=== PATIENT | female | born 1940 | race Caucasian/White ===

== ENCOUNTER 2016-06-28 15:55 | Emergency (ER) | payer MEDICARE, OTHER ==
[2016-06-28] MEDS ORDERED: Pantoprazole 40 MG VIAL ONE (16:08)
[2016-06-28 16:21] LABS: #Basophils 0.1 thou/uL (0.0-0.2); #Eosinphils 0.1 thou/uL (0.0-0.7); #Lymphocytes 0.8 thou/uL (1.20-3.40); #Monocytes 0.7 thou/uL (0.11-0.59); #Neutrophils 8.3 thou/uL (1.40-6.50); %Basophils 0.8 % (0.0-1.0); %Eosinophils 0.7 % (0.0-10.0); %Lymphocytes 8.1 % (21.0-51.0); %Monocytes 6.7 % (0.0-10.0); %Neutrophils 83.7 % (42.0-75.0); Hemoglobin 14.3 g/dL (12.0-16.0); Mean Corpuscular HGB CONC 32.7 g/dL (32.0-36.0); Mean Corpuscular Hemoglobin 31.5 pg (27.0-31.0); Mean Corpuscular Volume 96.2 fl (81.0-99.0); Mean Platelet Volume 9.9 fL (7.4-10.4); Platelet Count 184 thou/uL (130-400); RBC Distribution Width 12.3 % (11.5-14.5); Red Blood Cell (RBC) Count 4.53 mill/uL (4.20-5.40); White Blood Cell (WBC) Count 9.9 thou/uL (4.8-10.8)
[2016-06-28 16:38] LABS: ALT (SGPT) 11 U/L (0-55); AST (SGOT) 21 U/L (5-34); Albumin 4.1 g/dL (3.4-4.8); Alkaline Phosphatase 75 U/L (40-150); Anion Gap 14 mmol/L (10-20); BUN (Urea Nitrogen) 13 mg/dL (9.8-20.1); Bilirubin, Total 0.6 mg/dL (0.2-1.2); Calc. Creatinine Clearance 0 mL/min (70-130); Calcium 9.4 mg/dL (7.8-10.44); Carbon Dioxide 31 mmol/L (23-31); Chloride 101 mmol/L (98-107); Estimated GFR-MDRD 67; Globulin 2.6 g/dL (2.4-3.5); Glucose 140 mg/dL (83-110); Potassium 3.2 mmol/L (3.5-5.1); Protein, Total 6.7 g/dL (5.8-8.1); Sodium 143 mmol/L (136-145)
[2016-06-28] MEDS ORDERED: Prochlorperazine 10 MG/2 ML VIAL ONE ×2 (16:43→16:50)
[2016-06-28] MEDS ORDERED: Ondansetron HCl/PF 4 MG/2 ML Vial ONE (18:43)
[2016-06-28 18:45] LABS: Bilirubin Negative (Negative); Blood, Urine Negative (Negative); Glucose, Urine (Dipstick) Negative (Negative); Leukocyte Small (Negative); Nitrite Negative (Negative); Protein, Urine (Dipstick) 30 mg/dL (Neg-Trace); Urobilinogen 0.2 mg/dL (0.2-1.0); pH, Urine 7.5 (5.0-9.0)
[2016-06-28 18:48] LABS: Clarity Cloudy (Clear); RBC/HPF 0-3 HPF (0-3); Squamous Epithelial 0-3 HPF (0-3); WBC/HPF 0-3 HPF (0-3)
[2016-06-28 18:49] LABS: Bacteria/HPF Rare-Few HPF (None Seen); Crystals/HPF 2+ AMORPH PHOS HPF (Negative)
[2016-06-28] MEDS ORDERED: HYDROcodone/Acetaminophen 5/325 mg Tablet ONE (19:48)
[2016-06-28] MEDS ORDERED: Famotidine 20 MG TAB ONE (19:48)
--- NOTE | 2016-06-28 20:35 | CT ---
CT ABDOMEN AND PELVIS WITHOUT CONTRAST 06/28/[address] of the abdomen and pelvis was performed for evaluation of upper abdominal pain with nausea and vomiting. Axial slices were acquired, then coronal reconstructions were done. There are no prio r scans available for comparison. There is a very large hiatal hernia with most of the fundus of the stomach being in the chest. There is fluid retention in the stomach which may be due to a relative gastric outlet obstruction, whethe r it be mechanical or gastroparesis. The stomach wall does not appear thick in any way. The liver co ntains multiple cystic areas throughout both lobes, the largest measuring about 2.4 cm in the dome o f the liver. These are probably just simple cysts, but ultrasound should be done electively to be vasquez re. The spleen, pancreas, and adrenal glands were unremarkable within the limitations of a noncontra st study. The kidneys showed a subcentimeter hemorrhagic cyst in the right kidney. No solid masses o r hydronephrosis was seen. The abdominal aorta is calcified but there is no aneurysm of significance . The bowel is nondistended. There are no inflammatory changes around bowel. No free air or free fluid was seen. A few diverticula are seen in the sigmoid region. CT of the pelvis shows no pelvic masses, fluid collections, or inflammatory changes. Degenerative ch anges are prominent in the lower lumbar spine. IMPRESSION: 1. Very large hiatal hernia with most of the fundus of the stomach in the chest. 2. Fluid retention in the stomach. See above. 3. Cannot rule out sludge in the gallbladder. An elective ultrasound would be useful. 4. Several cystic areas in the liver, probably just simple cysts, but an elective ultrasound is needed for confirmation. POS: [facility]
== END 2016-06-28 20:05 | disposition home or self-care (01) ==
LOC: BURERS 15:55
DX: K21.0 Gastro-esophageal reflux disease with esophagitis (principal); K44.9 Diaphragmatic hernia without obstruction or gangrene; M81.0 Age-related osteoporosis without current pathological fracture; G62.9 Polyneuropathy, unspecified; E03.9 Hypothyroidism, unspecified; E78.5 Hyperlipidemia, unspecified; F32.9 Major depressive disorder, single episode, unspecified; Z79.52 Long term (current) use of systemic steroids; Z79.899 Other long term (current) drug therapy
CPT/HCPCS: 36415; 74176; 80053; 81003; 81015; 82274; 83690; 85025; 96361; 96374; 96375; C9113; J0780; J2405

== ENCOUNTER 2019-04-10 13:54 | Emergency (ER) | payer MEDICARE ==
[2019-04-10] MEDS ORDERED: Nitroglycerin 0.4 MG TAB 1 EACH ONE (14:19)
[2019-04-10 14:56] LABS: ALT (SGPT) 32 U/L (8-55); AST (SGOT) 34 U/L (5-34); Albumin 4.1 g/dL (3.4-4.8); Alkaline Phosphatase 152 U/L (40-110); Anion Gap 17 mmol/L (10-20); BUN (Urea Nitrogen) 14 mg/dL (9.8-20.1); Bilirubin, Total 0.4 mg/dL (0.2-1.2); Calc. Creatinine Clearance 0 mL/min (70-130); Calcium 9.3 mg/dL (7.8-10.44); Carbon Dioxide 21 mmol/L (23-31); Chloride 101 mmol/L (98-107); Estimated GFR-MDRD 65; Globulin 3.3 g/dL (2.4-3.5); Glucose 108 mg/dL (83-110); Lipase 24 U/L (8-78); Potassium 4.1 mmol/L (3.5-5.1); Protein, Total 7.4 g/dL (6.0-8.3); Sodium 135 mmol/L (136-145)
[2019-04-10] MEDS ORDERED: Clopidogrel Bisulfate 75 MG TAB ONE (14:57)
[2019-04-10 14:59] LABS: Eosinophils 5 % (0-10); Hemoglobin 13.3 g/dL (12.0-16.0); Lymphocytes 5 % (21-51); MDiff Complete? YES; Mean Corpuscular HGB CONC 32.1 g/dL (32.0-36.0); Mean Corpuscular Hemoglobin 31.9 pg (27.0-31.0); Mean Corpuscular Volume 99.5 fL (78.0-98.0); Mean Platelet Volume 10.1 fL (7.4-10.4); Monocytes 6 % (0-10); Neutrophil 84 % (42-75); Platelet Count 196 thou/uL (130-400); RBC Distribution Width 12.1 % (11.5-14.5); Red Blood Cell (RBC) Count 4.18 mill/uL (4.20-5.40)
[2019-04-10] MEDS ORDERED: Clopidogrel Bisulfate 75 MG TAB PO SCH (15:00)
--- NOTE | 2019-04-10 15:10 | RAD ---
PORTABLE CHEST: HISTORY: Left-sided chest pain. COMPARISON: 07/05/2018 study. FINDINGS: The patient is rotated to the left on this exam. Heart size is felt to be within normal limits. Chr onic-appearing lung changes are seen without focal infiltrates. IMPRESSION: Chronic lung change. POS: [facility]
--- NOTE | 2019-04-10 15:40 | RAD ---
PA AND LATERAL CHEST: HISTORY: Left-sided chest pain. FINDINGS: Heart size is within normal limits. A hiatal hernia is demonstrated. Chronic-appearing lung changes are seen. IMPRESSION: No active intrathoracic disease. POS: [facility]
[2019-04-10 15:42] LABS: Bilirubin Small (Negative); Blood, Urine Negative (Negative); Clarity Cloudy (Clear); Glucose, Urine (Dipstick) Negative (Negative); Leukocyte Moderate (Negative); Nitrite Negative (Negative); Protein, Urine (Dipstick) 30 mg/dL (Neg-Trace); Urobilinogen 0.2 mg/dL (Less than 2)
[2019-04-10] MEDS ORDERED: Ondansetron ODT 4 MG TAB ONE (15:46)
[2019-04-10] MEDS ORDERED: Ondansetron PF 4 MG/2 ML Vial ONE (15:48)
[2019-04-10 15:52] LABS: Bacteria/HPF 1+ HPF (None Seen); Broad Cast None Seen LPF (None Seen); Cellular Cast None Seen LPF (None Seen); Epithelial Cast None Seen LPF (None Seen); Fatty Cast None Seen LPF (None Seen); Mucous/LPF 4+ LPF (<2+); Oval Fat Bodies/HPF None Seen HPF (None Seen); RBC/HPF None Seen HPF (0-3); Red Blood Cell Cast None Seen LPF (None Seen); Renal Epithelial None Seen HPF (None Seen); Sperm/HPF None Seen HPF (None Seen); Squamous Epithelial None Seen HPF (0-3); Transitional Epithelial None Seen HPF (None Seen); Trichomonas/HPF None Seen HPF (None Seen); White Blood Cell Cast None Seen LPF (None Seen); Yeast-Budding None Seen HPF (None Seen); Yeast-Hyphae None Seen HPF (None Seen)
[2019-04-10 15:53] LABS: Calcium Oxalate Crystals None Seen HPF (None Seen); Other Casts None Seen LPF (None Seen); Triple Phosphate Crystal None Seen HPF (None Seen); Unclassified Crystals None Seen HPF (None Seen); Waxy Cast None Seen LPF (None Seen)
[2019-04-10] MEDS ORDERED: Nitrofurantoin Monohyd/M-Cryst 100 MG CAP ONE (16:23)
== END 2019-04-10 16:36 | disposition short-term general hospital (02) ==
LOC: BURERS 13:54
DX: R07.89 Other chest pain (principal); S81.819A Laceration without foreign body, unspecified lower leg, initial encounter; R00.1 Bradycardia, unspecified; N39.0 Urinary tract infection, site not specified; E03.9 Hypothyroidism, unspecified; E78.1 Pure hyperglyceridemia; E78.5 Hyperlipidemia, unspecified; I10 Essential (primary) hypertension; G62.9 Polyneuropathy, unspecified; Z79.899 Other long term (current) drug therapy; Z79.51 Long term (current) use of inhaled steroids; X58.XXXA Exposure to other specified factors, initial encounter
CPT/HCPCS: 71045; 71046; 80053; 81003; 81015; 83605; 83690; 84484; 85025; 85379; 87086; 93005; 94760; 96374; J2405; Q0162

== ENCOUNTER 2020-04-04 09:20 | Emergency (ER) | payer MEDICARE ==
[2020-04-04] MEDS ORDERED: Oxymetazoline HCl 0.05% (30 ML BOT) ONE (09:35)
[2020-04-04] MEDS ORDERED: Cephalexin 250 MG CAP ONE (11:08)
== END 2020-04-04 11:30 | disposition home or self-care (01) ==
LOC: BURERS 09:20
DX: R04.0 Epistaxis (principal); E03.9 Hypothyroidism, unspecified; E78.2 Mixed hyperlipidemia; I10 Essential (primary) hypertension; Z79.899 Other long term (current) drug therapy
CPT/HCPCS: 30903

== ENCOUNTER 2020-07-26 11:34 | Outpatient (CLI) | payer MEDICARE | END 2020-07-26 11:35 | disposition home or self-care (01) | LOC: BURRAD 11:34 | PROVIDERS: ATTEND Family Medicine | DX: M54.5 Low back pain (principal); M47.816 Spondylosis without myelopathy or radiculopathy, lumbar region; M81.0 Age-related osteoporosis without current pathological fracture | CPT/HCPCS: 72100; 72170 ==

== ENCOUNTER 2022-07-03 11:00 | Outpatient (CLI) | payer MEDICARE | END 2022-07-03 11:01 | disposition home or self-care (01) | LOC: BURRAD 11:00 | PROVIDERS: ATTEND Family Medicine | DX: M54.50 Low back pain, unspecified (principal); M47.816 Spondylosis without myelopathy or radiculopathy, lumbar region; M81.0 Age-related osteoporosis without current pathological fracture; I70.90 Unspecified atherosclerosis | CPT/HCPCS: 72110 ==

== ENCOUNTER 2022-10-18 10:15 | Emergency (ER) | payer MEDICARE ==
[2022-10-18] MEDS ORDERED: Ketorolac Tromethamine 60 MG/2 ML VIAL ONE (10:38)
== END 2022-10-18 10:49 | disposition home or self-care (01) ==
LOC: BURERS 10:15
DX: M54.32 Sciatica, left side (principal); E03.9 Hypothyroidism, unspecified; E78.2 Mixed hyperlipidemia; I10 Essential (primary) hypertension
CPT/HCPCS: 96372; 99283; J1885

== ENCOUNTER 2022-10-23 11:31 | Inpatient (IN) | payer MEDICARE ==
[2022-10-23 12:05] LABS: Bilirubin Negative (Negative); Blood, Urine Trace (Negative); Clarity Cloudy (Clear); Glucose, Urine (Dipstick) Negative (Negative); Ketone, Urine Negative (Negative); Leukocyte Large (Negative); Nitrite Positive (Negative); Protein, Urine (Dipstick) 100 mg/dL (Neg-Trace); Specific Gravity, Urine 1.015 (1.005-1.030); Urobilinogen 0.2 mg/dL (Less than 2); pH, Urine 8.5 (5.0-9.0)
[2022-10-23 12:06] LABS: Bacteria/HPF 2+ HPF (None Seen); CAUTI Indications for Culture Dysuria,urgency,freq; Squamous Epithelial 0-3 HPF (0-3); WBC/HPF 21-50 HPF (0-3)
[2022-10-23 12:07] LABS: Urine Culture Reflex Yes Yes
[2022-10-23 12:12] LABS: #Basophils 0.2 thou/uL (0.0-0.2); #Eosinphils 0.2 thou/uL (0.0-0.7); #Lymphocytes 0.8 thou/uL (1.20-3.40); #Neutrophils 8.1 thou/uL (1.40-6.50); %Basophils 1.9 % (0.0-1.0); %Eosinophils 2.3 % (0.0-10.0); %Lymphocytes 7.4 % (21.0-51.0); %Monocytes 9.4 % (0.0-10.0); Hematocrit 35.2 % (36.0-47.0); Hemoglobin 11.4 g/dL (12.0-16.0); Mean Corpuscular HGB CONC 32.4 g/dL (32.0-36.0); Mean Corpuscular Hemoglobin 30.4 pg (27.0-31.0); Mean Corpuscular Volume 93.8 fl (78.0-98.0); Mean Platelet Volume 7.5 fL (7.4-10.4); Platelet Count 200 10x3/uL (130-400); RBC Distribution Width 11.8 % (11.5-14.5); Red Blood Cell (RBC) Count 3.75 mill/uL (4.20-5.40); White Blood Cell (WBC) Count 10.3 10x3/uL (4.8-10.8)
[2022-10-23] MEDS ORDERED: cefTRIAXone (ROCEPHIN) 2 GM VIAL ONE (12:26)
[2022-10-23] MEDS ORDERED: Sodium Chloride 0.9% 100 ML ONE (12:26)
[2022-10-23 12:27] LABS: ALT (SGPT) 10 U/L (8-55); AST (SGOT) 16 U/L (5-34); Albumin 3.5 g/dL (3.4-4.8); Alkaline Phosphatase 89 U/L (40-110); Anion Gap 15 mmol/L (10-20); BUN (Urea Nitrogen) 20 mg/dL (9.8-20.1); Bilirubin, Total 0.4 mg/dL (0.2-1.2); Calc. Creatinine Clearance 0 mL/min (70-130); Calcium 8.7 mg/dL (7.8-10.44); Carbon Dioxide 19 mmol/L (23-31); Chloride 102 mmol/L (98-107); Estimated GFR 84; Globulin 2.9 g/dL (2.4-3.5); Glucose 100 mg/dL (83-110); Lipase 17 U/L (8-78); Potassium 4.1 mmol/L (3.5-5.1); Protein, Total 6.4 g/dL (5.8-8.1); Sodium 132 mmol/L (136-145)
[2022-10-23] MEDS ORDERED: fentaNYL 50 mcg/mL 1 mL Vial ONE (12:51)
[2022-10-23] MEDS ORDERED: Ondansetron PF 4 MG/2 ML Vial ONE (12:51)
[2022-10-23] MEDS ORDERED: Calcium Carbonate 500 MG ChewTAB PO PRN (16:30)
[2022-10-23] MEDS ORDERED: Loperamide HCl 2 MG CAP PO PRN ×2 (16:30)
[2022-10-23] MEDS ORDERED: Acetaminophen 650 MG Suppository PR PRN (16:30)
[2022-10-23] MEDS ORDERED: HYDROcodone/Acetaminophen 5/325 mg Tablet PO PRN (16:30)
[2022-10-23] MEDS ORDERED: Ondansetron PF 4 MG/2 ML Vial SLOW IVP PRN (16:30)
[2022-10-23] MEDS ORDERED: Zolpidem Tartrate 5 MG TAB PO PRN (16:30)
[2022-10-23] MEDS ORDERED: Bisacodyl 5 MG TAB PO PRN (16:30)
[2022-10-23] MEDS ORDERED: Senokot S 8.6-50 MG TAB PO PRN (16:30)
[2022-10-23] MEDS ORDERED: Bisacodyl 10 MG SUPP PR PRN (16:30)
[2022-10-23] MEDS ORDERED: Ondansetron ODT 4 MG TAB SL PRN (16:30)
[2022-10-23] MEDS ORDERED: Albuterol 200 PUFF (6.7GM INHALER) INH PRN (17:01)
[2022-10-23] MEDS ORDERED: WHEAT DEXTRIN PO PRN (17:16)
[2022-10-23] MEDS ORDERED: Phenazopyridine HCl 95 MG TAB ONE (17:32)
[2022-10-23] MEDS: HYDROcodone/Acetaminophen 5/325 mg Tablet PO PRN (17:37)
[2022-10-23] MEDS: Phenazopyridine HCl 100 MG TAB PO SCH (17:37)
[2022-10-23] MEDS: Mometasone 100 MCG/PUFF (1 INHALER) INH SCH (21:17)
[2022-10-23] MEDS: Montelukast Sodium 10 mg Tablet PO SCH (21:18)
[2022-10-23] MEDS: predniSONE 5 MG TAB PO SCH (21:18)
[2022-10-23] MEDS: Atorvastatin Calcium 10 MG TAB PO SCH (21:32)
[2022-10-24] MEDS: HYDROcodone/Acetaminophen 5/325 mg Tablet PO PRN ×3 (02:40→20:20)
[2022-10-24] MEDS: Levothyroxine Sodium 50 MCG TAB PO SCH (05:06)
[2022-10-24] MEDS: Cholecalciferol 1,000 UNITS (25 MCG) TAB PO SCH (09:17)
[2022-10-24] MEDS: Zinc Sulfate 220 MG CAP PO SCH (09:17)
[2022-10-24] MEDS: Saccharomyces boulardii 250 MG CAP PO SCH (09:19)
[2022-10-24] MEDS: Calcium Carbonate 600 MG + Vit D TAB PO SCH (09:19)
[2022-10-24] MEDS: Cyanocobalamin (Vitamin B-12) 1,000 MCG TAB PO SCH (09:19)
[2022-10-24] MEDS: Vitamin E 400 UNITS CAP PO SCH (09:19)
[2022-10-24] MEDS: Mometasone 100 MCG/PUFF (1 INHALER) INH SCH ×2 (09:20→20:19)
[2022-10-24] MEDS: Phenazopyridine HCl 100 MG TAB PO SCH (09:23)
[2022-10-24] MEDS: Phenazopyridine HCl 95 MG TAB PO SCH ×3 (09:24→18:10)
[2022-10-24] MEDS ORDERED: cefTRIAXone\\ROCEPHIN 1 GM in Sodium Chloride 0.9% 100 ML IVPB SCH (12:00)
[2022-10-24] MEDS: cefTRIAXone\\ROCEPHIN 1 GM in Sodium Chloride 0.9% 100 ML IVPB SCH (12:52)
[2022-10-24 15:57] VITALS: BMI 20.7
[2022-10-24] MEDS: Atorvastatin Calcium 10 MG TAB PO SCH (20:20)
[2022-10-24] MEDS: Montelukast Sodium 10 mg Tablet PO SCH (20:20)
[2022-10-24] MEDS: predniSONE 5 MG TAB PO SCH (20:20)
[2022-10-25] MEDS: Levothyroxine Sodium 50 MCG TAB PO SCH (04:41)
[2022-10-25] MEDS: HYDROcodone/Acetaminophen 5/325 mg Tablet PO PRN ×2 (04:41→16:09)
[2022-10-25] MEDS ORDERED: Polyethylene Glycol 3350 17 GM Packet PO PRN (06:40)
[2022-10-25] MEDS: Zinc Sulfate 220 MG CAP PO SCH (08:35)
[2022-10-25] MEDS: Cholecalciferol 1,000 UNITS (25 MCG) TAB PO SCH (08:35)
[2022-10-25] MEDS: Saccharomyces boulardii 250 MG CAP PO SCH (08:35)
[2022-10-25] MEDS: Cyanocobalamin (Vitamin B-12) 1,000 MCG TAB PO SCH (08:35)
[2022-10-25] MEDS: Vitamin E 400 UNITS CAP PO SCH (08:35)
[2022-10-25] MEDS: Phenazopyridine HCl 95 MG TAB PO SCH ×3 (08:35→18:39)
[2022-10-25] MEDS: Calcium Carbonate 600 MG + Vit D TAB PO SCH (08:36)
[2022-10-25] MEDS: Acetaminophen 325 MG TAB PO PRN ×2 (08:36→12:50)
[2022-10-25] MEDS: Mometasone 100 MCG/PUFF (1 INHALER) INH SCH ×2 (08:38→20:52)
[2022-10-25] MEDS: cefTRIAXone\\ROCEPHIN 1 GM in Sodium Chloride 0.9% 100 ML IVPB SCH (12:49)
[2022-10-25] MEDS: Atorvastatin Calcium 10 MG TAB PO SCH (20:52)
[2022-10-25] MEDS: Montelukast Sodium 10 mg Tablet PO SCH (20:53)
[2022-10-25] MEDS: predniSONE 5 MG TAB PO SCH (20:53)
[2022-10-25] MEDS: Nystatin Powder 15 GM BOT TOP SCH (20:53)
[2022-10-26] MEDS: Acetaminophen 325 MG TAB PO PRN (05:15)
[2022-10-26] MEDS: Levothyroxine Sodium 50 MCG TAB PO SCH (05:15)
[2022-10-26 06:00] VITALS: BP 144/76; TEMP 98.7
[2022-10-26] MEDS: Vitamin E 400 UNITS CAP PO SCH (08:53)
[2022-10-26] MEDS: Phenazopyridine HCl 95 MG TAB PO SCH ×2 (08:53→12:12)
[2022-10-26] MEDS: Cholecalciferol 1,000 UNITS (25 MCG) TAB PO SCH (08:53)
[2022-10-26] MEDS: Zinc Sulfate 220 MG CAP PO SCH (08:54)
[2022-10-26] MEDS: Calcium Carbonate 600 MG + Vit D TAB PO SCH (08:54)
[2022-10-26] MEDS: Cyanocobalamin (Vitamin B-12) 1,000 MCG TAB PO SCH (08:54)
[2022-10-26] MEDS: Mometasone 100 MCG/PUFF (1 INHALER) INH SCH (08:55)
[2022-10-26] MEDS: Nystatin Powder 15 GM BOT TOP SCH (08:55)
[2022-10-26] MEDS: Saccharomyces boulardii 250 MG CAP PO SCH (08:57)
[2022-10-26] MEDS ORDERED: Cefdinir 300 MG CAP PO SCH (09:00)
== END 2022-10-26 14:10 | disposition swing bed (61) | DRG 690 ==
LOC: BURERS 11:31 → BURMED 14:30
PROVIDERS: ADMIT Family Medicine; ATTEND Family Medicine
DX: N39.0 Urinary tract infection, site not specified (principal); E86.0 Dehydration; G89.29 Other chronic pain; E03.9 Hypothyroidism, unspecified; E78.00 Pure hypercholesterolemia, unspecified; I10 Essential (primary) hypertension; M81.0 Age-related osteoporosis without current pathological fracture; G62.9 Polyneuropathy, unspecified; E78.5 Hyperlipidemia, unspecified; J45.909 Unspecified asthma, uncomplicated; I48.0 Paroxysmal atrial fibrillation; Z90.49 Acquired absence of other specified parts of digestive tract; Z90.710 Acquired absence of both cervix and uterus; Z88.1 Allergy status to other antibiotic agents; Z88.5 Allergy status to narcotic agent; Z88.8 Allergy status to other drugs, medicaments and biological substances; Z88.2 Allergy status to sulfonamides; Z98.890 Other specified postprocedural states
CPT/HCPCS: 36415; 51701; 80053; 81001; 83605; 83690; 85025; 87040; 87077; 87086; 87186; 93005; 96361; 96365; 96375; J0696; J1650; J2405; J3010; J3490; J7512

== ENCOUNTER 2022-10-26 14:10 | Inpatient (IN) | payer MEDICARE ==
[2022-10-26 16:13] VITALS: BMI 21.9
[2022-10-26] MEDS ORDERED: Senokot S 8.6-50 MG TAB PO PRN ×2 (16:15→16:34)
[2022-10-26] MEDS ORDERED: Ondansetron ODT 4 MG TAB SL PRN ×2 (16:15→16:34)
[2022-10-26] MEDS ORDERED: Loperamide HCl 2 MG CAP PO PRN ×3 (16:15→16:34)
[2022-10-26] MEDS ORDERED: Bisacodyl 10 MG SUPP PR PRN ×2 (16:15→16:34)
[2022-10-26] MEDS ORDERED: Bisacodyl 5 MG TAB PO PRN ×2 (16:15→16:34)
[2022-10-26] MEDS ORDERED: HYDROcodone/Acetaminophen 5/325 mg Tablet PO PRN ×4 (16:15→16:34)
[2022-10-26] MEDS ORDERED: Calcium Carbonate 500 MG ChewTAB PO PRN ×2 (16:15→16:34)
[2022-10-26] MEDS ORDERED: Acetaminophen 325 MG TAB PO PRN (16:34)
[2022-10-26] MEDS ORDERED: Zolpidem Tartrate 5 MG TAB PO PRN (16:34)
[2022-10-26] MEDS ORDERED: Albuterol 200 PUFF (6.7GM INHALER) INH PRN (16:34)
[2022-10-26] MEDS ORDERED: Polyethylene Glycol 3350 17 GM Packet PO PRN (16:34)
[2022-10-26] MEDS ORDERED: Acetaminophen 650 MG Suppository PR PRN (16:34)
[2022-10-26] MEDS ORDERED: WHEAT DEXTRIN PO PRN (17:20)
[2022-10-26] MEDS ORDERED: Phenazopyridine HCl 95 MG TAB PO SCH (18:00)
[2022-10-26] MEDS ORDERED: Nystatin Powder 15 GM BOT TOP SCH (21:00)
[2022-10-26] MEDS: Cefdinir 300 MG CAP PO SCH (21:20)
[2022-10-26] MEDS: Montelukast Sodium 10 mg Tablet PO SCH (21:20)
[2022-10-26] MEDS: Mometasone 100 MCG/PUFF (1 INHALER) INH SCH (21:20)
[2022-10-26] MEDS: Atorvastatin Calcium 10 MG TAB PO SCH (21:21)
[2022-10-26] MEDS: PREDNISONE 1 MG PO SCH (21:26)
[2022-10-27] MEDS: Acetaminophen 325 MG TAB PO PRN ×2 (02:21→11:36)
[2022-10-27] MEDS: Levothyroxine Sodium 50 MCG TAB PO SCH (05:10)
[2022-10-27] MEDS ORDERED: BIOTIN 5000 MCG PO SCH (09:00)
[2022-10-27] MEDS: Vitamin E 400 UNITS CAP PO SCH (09:03)
[2022-10-27] MEDS: Cholecalciferol 1,000 UNITS (25 MCG) TAB PO SCH (09:03)
[2022-10-27] MEDS: Zinc Sulfate 220 MG CAP PO SCH (09:03)
[2022-10-27] MEDS: Calcium Carbonate 600 MG + Vit D TAB PO SCH (09:04)
[2022-10-27] MEDS: Saccharomyces boulardii 250 MG CAP PO SCH (09:04)
[2022-10-27] MEDS: Cyanocobalamin (Vitamin B-12) 1,000 MCG TAB PO SCH (09:04)
[2022-10-27] MEDS: Mometasone 100 MCG/PUFF (1 INHALER) INH SCH ×2 (09:04→21:55)
[2022-10-27] MEDS: Cefdinir 300 MG CAP PO SCH ×2 (09:04→21:56)
[2022-10-27] MEDS: Atorvastatin Calcium 10 MG TAB PO SCH (21:56)
[2022-10-27] MEDS: PREDNISONE 1 MG PO SCH (21:57)
[2022-10-27] MEDS: Montelukast Sodium 10 mg Tablet PO SCH (21:57)
[2022-10-28] MEDS: Levothyroxine Sodium 50 MCG TAB PO SCH (07:11)
[2022-10-28] MEDS: Acetaminophen 325 MG TAB PO PRN ×3 (09:00→23:05)
[2022-10-28] MEDS: Cyanocobalamin (Vitamin B-12) 1,000 MCG TAB PO SCH (09:02)
[2022-10-28] MEDS: Calcium Carbonate 600 MG + Vit D TAB PO SCH (09:02)
[2022-10-28] MEDS: Vitamin E 400 UNITS CAP PO SCH (09:02)
[2022-10-28] MEDS: Zinc Sulfate 220 MG CAP PO SCH (09:02)
[2022-10-28] MEDS: Saccharomyces boulardii 250 MG CAP PO SCH (09:02)
[2022-10-28] MEDS: Cefdinir 300 MG CAP PO SCH ×2 (09:03→22:45)
[2022-10-28] MEDS: Cholecalciferol 1,000 UNITS (25 MCG) TAB PO SCH (09:03)
[2022-10-28] MEDS: Mometasone 100 MCG/PUFF (1 INHALER) INH SCH ×2 (09:11→22:55)
[2022-10-28] MEDS: Atorvastatin Calcium 10 MG TAB PO SCH (22:45)
[2022-10-28] MEDS: Montelukast Sodium 10 mg Tablet PO SCH (22:46)
[2022-10-28] MEDS: PREDNISONE 1 MG PO SCH (22:46)
[2022-10-29] MEDS: Levothyroxine Sodium 50 MCG TAB PO SCH (05:50)
[2022-10-29] MEDS: Cyanocobalamin (Vitamin B-12) 1,000 MCG TAB PO SCH (09:29)
[2022-10-29] MEDS: Cefdinir 300 MG CAP PO SCH ×2 (09:29→20:01)
[2022-10-29] MEDS: Cholecalciferol 1,000 UNITS (25 MCG) TAB PO SCH (09:29)
[2022-10-29] MEDS: Acetaminophen 325 MG TAB PO PRN (09:29)
[2022-10-29] MEDS: Zinc Sulfate 220 MG CAP PO SCH (09:30)
[2022-10-29] MEDS: Vitamin E 400 UNITS CAP PO SCH (09:30)
[2022-10-29] MEDS: Saccharomyces boulardii 250 MG CAP PO SCH (09:30)
[2022-10-29] MEDS: Calcium Carbonate 600 MG + Vit D TAB PO SCH (09:30)
[2022-10-29] MEDS: Mometasone 100 MCG/PUFF (1 INHALER) INH SCH ×2 (09:45→20:02)
[2022-10-29] MEDS: Atorvastatin Calcium 10 MG TAB PO SCH (20:01)
[2022-10-29] MEDS: Montelukast Sodium 10 mg Tablet PO SCH (20:01)
[2022-10-29] MEDS: PREDNISONE 1 MG PO SCH (20:04)
[2022-10-30] MEDS: Acetaminophen 325 MG TAB PO PRN ×3 (02:36→20:40)
[2022-10-30 05:43] LABS: #Basophils 0.1 thou/uL (0.0-0.2); #Eosinphils 0.3 thou/uL (0.0-0.7); #Lymphocytes 0.8 thou/uL (1.20-3.40); #Monocytes 0.8 thou/uL (0.11-0.59); #Neutrophils 4.4 thou/uL (1.40-6.50); %Basophils 1.4 % (0.0-1.0); %Lymphocytes 12.6 % (21.0-51.0); %Monocytes 12.9 % (0.0-10.0); Hematocrit 34.6 % (36.0-47.0); Hemoglobin 11.2 g/dL (12.0-16.0); Mean Corpuscular HGB CONC 32.3 g/dL (32.0-36.0); Mean Corpuscular Hemoglobin 29.9 pg (27.0-31.0); Mean Corpuscular Volume 92.4 fl (78.0-98.0); Mean Platelet Volume 7.4 fL (7.4-10.4); Platelet Count 250 10x3/uL (130-400); RBC Distribution Width 11.3 % (11.5-14.5); Red Blood Cell (RBC) Count 3.75 mill/uL (4.20-5.40); White Blood Cell (WBC) Count 6.5 10x3/uL (4.8-10.8)
[2022-10-30 05:49] LABS: ALT (SGPT) 18 U/L (8-55); AST (SGOT) 25 U/L (5-34); Albumin 3.2 g/dL (3.4-4.8); Alkaline Phosphatase 112 U/L (40-110); Anion Gap 14 mmol/L (10-20); BUN (Urea Nitrogen) 14 mg/dL (9.8-20.1); Bilirubin, Total 0.4 mg/dL (0.2-1.2); Calc. Creatinine Clearance 59 mL/min (70-130); Calcium 8.6 mg/dL (7.8-10.44); Carbon Dioxide 23 mmol/L (23-31); Chloride 96 mmol/L (98-107); Estimated GFR 88; Glucose 92 mg/dL (83-110); Potassium 4.5 mmol/L (3.5-5.1); Protein, Total 6.2 g/dL (5.8-8.1); Sodium 128 mmol/L (136-145)
[2022-10-30] MEDS: Levothyroxine Sodium 50 MCG TAB PO SCH (07:25)
[2022-10-30] MEDS: Cyanocobalamin (Vitamin B-12) 1,000 MCG TAB PO SCH (09:45)
[2022-10-30] MEDS: Saccharomyces boulardii 250 MG CAP PO SCH (09:46)
[2022-10-30] MEDS: Zinc Sulfate 220 MG CAP PO SCH (09:46)
[2022-10-30] MEDS: Cefdinir 300 MG CAP PO SCH ×2 (09:46→20:34)
[2022-10-30] MEDS: Cholecalciferol 1,000 UNITS (25 MCG) TAB PO SCH (09:46)
[2022-10-30] MEDS: Calcium Carbonate 600 MG + Vit D TAB PO SCH (09:46)
[2022-10-30] MEDS: Vitamin E 400 UNITS CAP PO SCH (09:46)
[2022-10-30] MEDS: Mometasone 100 MCG/PUFF (1 INHALER) INH SCH ×2 (09:47→20:36)
[2022-10-30] MEDS: Montelukast Sodium 10 mg Tablet PO SCH (20:34)
[2022-10-30] MEDS: Atorvastatin Calcium 10 MG TAB PO SCH (20:34)
[2022-10-30] MEDS: PREDNISONE 1 MG PO SCH (20:36)
[2022-10-31] MEDS: Levothyroxine Sodium 50 MCG TAB PO SCH (05:49)
[2022-10-31] MEDS: Zinc Sulfate 220 MG CAP PO SCH (08:50)
[2022-10-31] MEDS: Vitamin E 400 UNITS CAP PO SCH (08:50)
[2022-10-31] MEDS: Cyanocobalamin (Vitamin B-12) 1,000 MCG TAB PO SCH (08:50)
[2022-10-31] MEDS: Cholecalciferol 1,000 UNITS (25 MCG) TAB PO SCH (08:50)
[2022-10-31] MEDS: Cefdinir 300 MG CAP PO SCH (08:51)
[2022-10-31] MEDS: Calcium Carbonate 600 MG + Vit D TAB PO SCH (08:51)
[2022-10-31] MEDS: Saccharomyces boulardii 250 MG CAP PO SCH (08:52)
[2022-10-31] MEDS: Mometasone 100 MCG/PUFF (1 INHALER) INH SCH ×2 (08:53→20:27)
[2022-10-31] MEDS: Acetaminophen 325 MG TAB PO PRN (08:59)
[2022-10-31] MEDS: Montelukast Sodium 10 mg Tablet PO SCH (20:27)
[2022-10-31] MEDS: Atorvastatin Calcium 10 MG TAB PO SCH (20:27)
[2022-10-31] MEDS: PREDNISONE 1 MG PO SCH (20:28)
[2022-11-01] MEDS: Levothyroxine Sodium 50 MCG TAB PO SCH (05:01)
[2022-11-01] MEDS: Zinc Sulfate 220 MG CAP PO SCH (08:43)
[2022-11-01] MEDS: Vitamin E 400 UNITS CAP PO SCH (08:43)
[2022-11-01] MEDS: Calcium Carbonate 600 MG + Vit D TAB PO SCH (08:44)
[2022-11-01] MEDS: Cholecalciferol 1,000 UNITS (25 MCG) TAB PO SCH (08:45)
[2022-11-01] MEDS: Cyanocobalamin (Vitamin B-12) 1,000 MCG TAB PO SCH (08:46)
[2022-11-01] MEDS: Saccharomyces boulardii 250 MG CAP PO SCH (08:47)
[2022-11-01] MEDS: Mometasone 100 MCG/PUFF (1 INHALER) INH SCH ×2 (08:49→20:35)
[2022-11-01] MEDS: Acetaminophen 325 MG TAB PO PRN (12:23)
[2022-11-01] MEDS: PREDNISONE 1 MG PO SCH (20:29)
[2022-11-01] MEDS: Montelukast Sodium 10 mg Tablet PO SCH (20:35)
[2022-11-01] MEDS: Atorvastatin Calcium 10 MG TAB PO SCH (20:35)
[2022-11-02] MEDS: Levothyroxine Sodium 50 MCG TAB PO SCH (05:06)
[2022-11-02] MEDS: Vitamin E 400 UNITS CAP PO SCH (08:29)
[2022-11-02] MEDS: Saccharomyces boulardii 250 MG CAP PO SCH (08:29)
[2022-11-02] MEDS: Cholecalciferol 1,000 UNITS (25 MCG) TAB PO SCH (08:29)
[2022-11-02] MEDS: Zinc Sulfate 220 MG CAP PO SCH (08:29)
[2022-11-02] MEDS: Mometasone 100 MCG/PUFF (1 INHALER) INH SCH ×2 (08:30→20:51)
[2022-11-02] MEDS: Cyanocobalamin (Vitamin B-12) 1,000 MCG TAB PO SCH (08:30)
[2022-11-02] MEDS: Calcium Carbonate 600 MG + Vit D TAB PO SCH (08:30)
[2022-11-02] MEDS: Acetaminophen 325 MG TAB PO PRN ×2 (08:32→12:26)
[2022-11-02] MEDS: Atorvastatin Calcium 10 MG TAB PO SCH (20:49)
[2022-11-02] MEDS: Montelukast Sodium 10 mg Tablet PO SCH (20:49)
[2022-11-02] MEDS: PREDNISONE 1 MG PO SCH (20:50)
[2022-11-03] MEDS: Levothyroxine Sodium 50 MCG TAB PO SCH (05:08)
[2022-11-03] MEDS: Zinc Sulfate 220 MG CAP PO SCH (09:16)
[2022-11-03] MEDS: Vitamin E 400 UNITS CAP PO SCH (09:16)
[2022-11-03] MEDS: Cyanocobalamin (Vitamin B-12) 1,000 MCG TAB PO SCH (09:17)
[2022-11-03] MEDS: Acetaminophen 325 MG TAB PO PRN (09:17)
[2022-11-03] MEDS: Cholecalciferol 1,000 UNITS (25 MCG) TAB PO SCH (09:17)
[2022-11-03] MEDS: Saccharomyces boulardii 250 MG CAP PO SCH (09:17)
[2022-11-03] MEDS: Calcium Carbonate 600 MG + Vit D TAB PO SCH (09:17)
[2022-11-03] MEDS: Mometasone 100 MCG/PUFF (1 INHALER) INH SCH ×2 (09:18→21:21)
[2022-11-03 14:52] LABS: Bilirubin Negative (Negative); Blood, Urine Negative (Negative); Clarity Clear (Clear); Glucose, Urine (Dipstick) Negative (Negative); Ketone, Urine Negative (Negative); Leukocyte Negative (Negative); Nitrite Negative (Negative); Protein, Urine (Dipstick) Negative (Neg-Trace); Specific Gravity, Urine 1.015 (1.005-1.030); Urobilinogen 0.2 mg/dL (Less than 2)
[2022-11-03 15:05] LABS: Bacteria/HPF None Seen HPF (None Seen); CAUTI Indications for Culture Dysuria,urgency,freq; RBC/HPF None Seen HPF (0-3); Squamous Epithelial None Seen HPF (0-3); Urine Culture Reflex No No; WBC/HPF None Seen HPF (0-3)
[2022-11-03] MEDS: Montelukast Sodium 10 mg Tablet PO SCH (21:19)
[2022-11-03] MEDS: Atorvastatin Calcium 10 MG TAB PO SCH (21:19)
[2022-11-03] MEDS: Loperamide HCl 2 MG CAP PO PRN (21:20)
[2022-11-03] MEDS: PREDNISONE 1 MG PO SCH (21:21)
[2022-11-04] MEDS: Levothyroxine Sodium 50 MCG TAB PO SCH (06:18)
[2022-11-04] MEDS: Vitamin E 400 UNITS CAP PO SCH (08:46)
[2022-11-04] MEDS: Cholecalciferol 1,000 UNITS (25 MCG) TAB PO SCH (08:47)
[2022-11-04] MEDS: Saccharomyces boulardii 250 MG CAP PO SCH (08:47)
[2022-11-04] MEDS: Acetaminophen 325 MG TAB PO PRN ×2 (08:47→12:22)
[2022-11-04] MEDS: Loperamide HCl 2 MG CAP PO PRN ×2 (08:47→20:32)
[2022-11-04] MEDS: Zinc Sulfate 220 MG CAP PO SCH (08:47)
[2022-11-04] MEDS: Cyanocobalamin (Vitamin B-12) 1,000 MCG TAB PO SCH (08:47)
[2022-11-04] MEDS: Calcium Carbonate 600 MG + Vit D TAB PO SCH (08:47)
[2022-11-04] MEDS: Mometasone 100 MCG/PUFF (1 INHALER) INH SCH ×2 (08:48→20:44)
[2022-11-04] MEDS: Montelukast Sodium 10 mg Tablet PO SCH (20:32)
[2022-11-04] MEDS: Atorvastatin Calcium 10 MG TAB PO SCH (20:32)
[2022-11-04] MEDS: PREDNISONE 1 MG PO SCH (20:44)
[2022-11-05] MEDS: Levothyroxine Sodium 50 MCG TAB PO SCH (05:11)
[2022-11-05] MEDS: Saccharomyces boulardii 250 MG CAP PO SCH (08:53)
[2022-11-05] MEDS: Cholecalciferol 1,000 UNITS (25 MCG) TAB PO SCH (08:53)
[2022-11-05] MEDS: Zinc Sulfate 220 MG CAP PO SCH (08:54)
[2022-11-05] MEDS: Acetaminophen 325 MG TAB PO PRN ×3 (08:54→21:21)
[2022-11-05] MEDS: Vitamin E 400 UNITS CAP PO SCH (08:54)
[2022-11-05] MEDS: Cyanocobalamin (Vitamin B-12) 1,000 MCG TAB PO SCH (08:54)
[2022-11-05] MEDS: Calcium Carbonate 600 MG + Vit D TAB PO SCH (08:55)
[2022-11-05] MEDS: Mometasone 100 MCG/PUFF (1 INHALER) INH SCH ×2 (08:55→21:19)
[2022-11-05] MEDS: Atorvastatin Calcium 10 MG TAB PO SCH (21:18)
[2022-11-05] MEDS: Montelukast Sodium 10 mg Tablet PO SCH (21:19)
[2022-11-06] MEDS: Levothyroxine Sodium 50 MCG TAB PO SCH (05:24)
[2022-11-06 06:11] VITALS: BP 150/69; TEMP 97.9
[2022-11-06] MEDS: Calcium Carbonate 600 MG + Vit D TAB PO SCH (08:33)
[2022-11-06] MEDS: Cholecalciferol 1,000 UNITS (25 MCG) TAB PO SCH (08:34)
[2022-11-06] MEDS: Vitamin E 400 UNITS CAP PO SCH (08:35)
[2022-11-06] MEDS: Saccharomyces boulardii 250 MG CAP PO SCH (08:35)
[2022-11-06] MEDS: Cyanocobalamin (Vitamin B-12) 1,000 MCG TAB PO SCH (08:36)
[2022-11-06] MEDS: Acetaminophen 325 MG TAB PO PRN (08:36)
[2022-11-06] MEDS: Zinc Sulfate 220 MG CAP PO SCH (08:36)
[2022-11-06] MEDS: Mometasone 100 MCG/PUFF (1 INHALER) INH SCH (08:46)
[2022-11-06] MEDS ORDERED: predniSONE 1 MG TAB PO SCH (21:00)
== END 2022-11-06 10:25 | DRG 948 ==
LOC: BURMED 14:10
PROVIDERS: ADMIT Family Medicine; ATTEND Family Medicine
DX: R53.81 Other malaise (principal); G89.29 Other chronic pain; M54.9 Dorsalgia, unspecified; I10 Essential (primary) hypertension; M81.0 Age-related osteoporosis without current pathological fracture; Z79.899 Other long term (current) drug therapy; Z79.890 Hormone replacement therapy; Z79.52 Long term (current) use of systemic steroids
CPT/HCPCS: 36415; 71045; 80053; 81001; 85025; 87324; 87449; J1650; Q0162

== ENCOUNTER 2022-12-20 09:16 | Emergency (ER) | payer MEDICARE ==
[2022-12-20 09:28] LABS: #Basophils 0.1 thou/uL (0.0-0.2); #Eosinphils 0.4 thou/uL (0.0-0.7); #Lymphocytes 1.2 thou/uL (1.20-3.40); #Monocytes 0.7 thou/uL (0.11-0.59); #Neutrophils 6.1 thou/uL (1.40-6.50); %Basophils 0.9 % (0.0-1.0); %Eosinophils 4.6 % (0.0-10.0); %Lymphocytes 14.3 % (21.0-51.0); %Monocytes 8.8 % (0.0-10.0); %Neutrophils 71.5 % (42.0-75.0); Hematocrit 36.4 % (36.0-47.0); Hemoglobin 12.4 g/dL (12.0-16.0); Mean Corpuscular HGB CONC 34.2 g/dL (32.0-36.0); Mean Corpuscular Hemoglobin 31.1 pg (27.0-31.0); Mean Platelet Volume 7.4 fL (7.4-10.4); Platelet Count 358 10x3/uL (130-400); RBC Distribution Width 10.9 % (11.5-14.5); White Blood Cell (WBC) Count 8.5 10x3/uL (4.8-10.8)
[2022-12-20 09:40] LABS: Acetaminophen Less than 10 mcg/mL (10.0-30.0); Alcohol Less than 10.0 mg/dL (Less than 10); Salicylate Less than 8.0 mg/dL (15.0-30.0)
[2022-12-20 09:44] LABS: ALT (SGPT) 16 U/L (8-55); AST (SGOT) 24 U/L (5-34); Albumin 3.5 g/dL (3.4-4.8); Alkaline Phosphatase 112 U/L (40-110); Anion Gap 15 mmol/L (10-20); BUN (Urea Nitrogen) 10 mg/dL (9.8-20.1); Bilirubin, Total 0.5 mg/dL (0.2-1.2); Calc. Creatinine Clearance 0 mL/min (70-130); Calcium 8.7 mg/dL (7.8-10.44); Carbon Dioxide 21 mmol/L (23-31); Chloride 88 mmol/L (98-107); Estimated GFR 89; Globulin 3.2 g/dL (2.4-3.5); Glucose 100 mg/dL (83-110); Potassium 4.8 mmol/L (3.5-5.1); Protein, Total 6.7 g/dL (5.8-8.1)
[2022-12-20 09:45] LABS: Sodium 119 mmol/L (136-145)
[2022-12-20 10:07] LABS: Bilirubin Negative (Negative); Blood, Urine Negative (Negative); Clarity Clear (Clear); Glucose, Urine (Dipstick) Negative (Negative); Ketone, Urine Negative (Negative); Leukocyte Negative (Negative); Nitrite Negative (Negative); Protein, Urine (Dipstick) 30 mg/dL (Neg-Trace); Urobilinogen 0.2 mg/dL (Less than 2); pH, Urine 7.5 (5.0-9.0)
[2022-12-20 10:14] LABS: Bacteria/HPF None Seen HPF (None Seen); CAUTI Indications for Culture Alt mental st,lethar; RBC/HPF 0-3 HPF (0-3); Squamous Epithelial 0-3 HPF (0-3); WBC/HPF 0-3 HPF (0-3)
[2022-12-20 10:15] LABS: Urine Culture Reflex No No
[2022-12-20 10:18] LABS: Amphetamine Not Detected (NotDetected); Barbiturates Screen Not Detected (NotDetected); Benzodiazepine Screen Not Detected (NotDetected); Cocaine Metabolite Screen Not Detected (NotDetected); Methadone Not Detected (NotDetected); Methamphetamine Not Detected (NotDetected); Opiate Screen Not Detected (NotDetected); Oxycodone Screen Not Detected (NotDetected); Phencyclidine (PCP) Not Detected (NotDetected); THC/Cannabinoid Screen Not Detected (NotDetected); Tricyclic Screen Not Detected (NotDetected)
[2022-12-20 16:10] LABS: Anion Gap 13 mmol/L (10-20); BUN (Urea Nitrogen) 9 mg/dL (9.8-20.1); Calc. Creatinine Clearance 0 mL/min (70-130); Calcium 8.4 mg/dL (7.8-10.44); Carbon Dioxide 20 mmol/L (23-31); Chloride 92 mmol/L (98-107); Estimated GFR 90; Glucose 98 mg/dL (83-110); Potassium 4.1 mmol/L (3.5-5.1); Sodium 121 mmol/L (136-145)
[2022-12-20] MEDS ORDERED: Acetaminophen 325 MG TAB ONE (16:12)
== END 2022-12-20 17:00 | disposition short-term general hospital (02) ==
LOC: BURERS 09:16
DX: R41.82 Altered mental status, unspecified (principal); R00.1 Bradycardia, unspecified; E87.1 Hypo-osmolality and hyponatremia; E03.9 Hypothyroidism, unspecified; E78.2 Mixed hyperlipidemia; I10 Essential (primary) hypertension
CPT/HCPCS: 51701; 70450; 71045; 80306; 80307; 81001; 82140; 84443; 84484; 85025; 93005; 96360; 96361